=== PATIENT | male | born 1955 | race Caucasian/White ===

== ENCOUNTER 2019-01-28 06:08 | Emergency (ER) | payer OTHER ==
[~2019-01-28] VITALS: Ht 180.3 cm; Wt 90.2 kg
[2019-01-28] MEDS ORDERED: KETOROLAC 30MG/ML VIAL IV STA (07:14)
[2019-01-28] MEDS ORDERED: SODIUM CHLORIDE 0.9% 1,000 ML IV ONE (07:14)
[2019-01-28] MEDS ORDERED: METRONIDAZOLE 500 MG PREMIX 100 ML IV ONE (07:15)
[2019-01-28 07:37] LABS: HEMATOCRIT. 40.1 % (42.0-52.0); HEMOGLOBIN. 12.8 g/dL (14.0-18.0); MEAN CORPUSCULAR HEMOGLOBIN 21.5 pg (28.0-32.0); MEAN CORPUSCULAR VOLUME 67.5 fL (80.0-94.0); MEAN PLATELET VOLUME 10.4 fl (7.4-10.4); PLATELET 194 x1000/uL (130-400); RED BLOOD CELL COUNT 5.94 mill/uL (4.7-6.1); RED CELL DISTRIBUTION WIDTH 15.4 % (11.6-14.6)
[2019-01-28 07:43] LABS: CHLORIDE 106 mEq/L (98-107)
[2019-01-28 07:46] LABS: INR 1.1; PROTHROMBIN TIME 10.8 sec (9.6-11.0)
[2019-01-28 07:47] LABS: ETHANOL BLOOD < 10 mg/dL
[2019-01-28 08:34] LABS: BASOPHILS % 0.3 % (0.0-2.0); LYMPHOCYTES % 22.8 % (20.0-50.0); MONOCYTES % 12.5 % (2.0-8.0); NEUTROPHILS % 64.4 % (40.0-76.0)
[2019-01-28 08:35] LABS: PLATELET ESTIMATE NORMAL
[2019-01-28 08:50] LABS: CLARITY URINE CLEAR (CLEAR); COLOR URINE DARK YELLOW (YELLOW); KETONES URINE 2+ (NEGATIVE); LEUKOCYTE ESTERASE URINE NEGATIVE (NEGATIVE); NITRITE URINE NEGATIVE (NEGATIVE); OCCULT BLOOD URINE NEGATIVE (NEGATIVE); PROTEIN URINE 1+ (NEGATIVE); SPECIFIC GRAVITY URINE 1.035 (1.005-1.030)
[2019-01-28 09:10] LABS: *BARBITURATES SCREEN URINE NEGATIVE (NEGATIVE); *BENZODIAZEPINES SCREEN URINE NEGATIVE (NEGATIVE)
[2019-01-28 09:11] LABS: *COCAINE SCREEN URINE NEGATIVE (NEGATIVE); CANNABINOID URINE SCREEN NEGATIVE (NEGATIVE); METHADONE URINE SCREEN NEGATIVE (NEGATIVE); OPIATES URINE SCREEN PRESUMTIVE POSITIVE (NEGATIVE); PHENCYCLIDINE URINE SCREEN NEGATIVE (NEGATIVE)
[2019-01-28 09:12] LABS: *AMPHETAMINES SCREEN URINE NEGATIVE (NEGATIVE)
[2019-01-28 10:20] VITALS: BP 161/68
== END 2019-01-28 10:39 | disposition home or self-care (01) ==
LOC: ER 06:08
DX: R10.13 Epigastric pain (principal); R19.7 Diarrhea, unspecified
CPT/HCPCS: 36415; 71045; 74176; 80053; 80305; 80320; 81003; 83690; 83880; 84484; 85025; 85610; 85730; 87086; 93005; 96365; 96375; 99284; J1885; J3490; J7030; Z7610; G0480

== ENCOUNTER 2019-07-23 17:56 | Emergency (ER) | payer OTHER ==
[~2019-07-23] VITALS: Ht 180.3 cm; Wt 5.0 kg
[2019-07-23] MEDS ORDERED: ACETAMINOPHEN WITH CODEINE 300/30MG TABLET PO ONE (19:00)
[2019-07-23] MEDS ORDERED: BACITRACIN 15GM TUBE TOP ONE (19:45)
[2019-07-23 20:45] VITALS: BP 125/76
== END 2019-07-23 21:24 | disposition home or self-care (01) ==
LOC: ER 17:56
DX: M79.18 Myalgia, other site (principal); S80.212A Abrasion, left knee, initial encounter; S80.211A Abrasion, right knee, initial encounter; S60.812A Abrasion of left wrist, initial encounter; S60.811A Abrasion of right wrist, initial encounter; W01.0XXA Fall on same level from slipping, tripping and stumbling without subsequent striking against object, initial encounter; Y93.55 Activity, bike riding; Y92.89 Other specified places as the place of occurrence of the external cause
CPT/HCPCS: 70486; 73110; 73560; 99284

== ENCOUNTER 2022-01-09 20:11 | Emergency (ER) | payer MEDICARE, OTHER ==
[~2022-01-09] VITALS: Ht 180.3 cm; Wt 89.0 kg
[2022-01-09] MEDS ORDERED: CEPH500C2 MT (21:56)
[2022-01-09] MEDS ORDERED: IBUP-2029 MT (21:56)
[2022-01-09] MEDS ORDERED: SULF1TAB48 MT (21:56)
[2022-01-09] MEDS ORDERED: KETOROLAC 60MG/2ML VIAL IM ONE (22:15)
[2022-01-09 22:39] VITALS: BP 135/82
== END 2022-01-09 23:25 | disposition home or self-care (01) ==
LOC: ER 20:11
DX: S62.92XA Unspecified fracture of left hand, initial encounter for closed fracture (principal); W18.30XA Fall on same level, unspecified, initial encounter; Y93.89 Activity, other specified; Y92.89 Other specified places as the place of occurrence of the external cause; Y99.8 Other external cause status
CPT/HCPCS: 73130; 96372; 99283; J1885

== ENCOUNTER 2022-03-04 23:01 | Emergency (ER) | payer MEDICARE, OTHER ==
[~2022-03-04] VITALS: Ht 180.3 cm; Wt 91.0 kg
[~2022-03-04 23:01] MED LIST: CEPH500C2 MT; IBUP-2029 MT; SULF1TAB48 MT
[2022-03-04 23:14] VITALS: BP 159/89
[2022-03-05] MEDS ORDERED: HYDROCODONE/ACETAMINOPHEN 5/325MG TABLET PO ONE (02:30)
[2022-03-05] MEDS ORDERED: IBUP-2029 MT (04:23)
== END 2022-03-05 04:30 | disposition home or self-care (01) ==
LOC: ER 23:01
DX: S09.8XXA Other specified injuries of head, initial encounter (principal); S13.9XXA Sprain of joints and ligaments of unspecified parts of neck, initial encounter; S63.502A Unspecified sprain of left wrist, initial encounter; V13.4XXA Pedal cycle driver injured in collision with car, pick-up truck or van in traffic accident, initial encounter; Y93.89 Activity, other specified; Y92.414 Local residential or business street as the place of occurrence of the external cause
CPT/HCPCS: 73110; 93005; 99285

== ENCOUNTER 2022-08-02 08:35 | Emergency (ER) | payer MEDICARE, OTHER ==
[~2022-08-02] VITALS: Ht 180.3 cm; Wt 91.5 kg
[2022-08-02] MEDS ORDERED: IBUP-2030 PO (11:43)
[2022-08-02] MEDS ORDERED: T3 PO (11:43)
[2022-08-02] MEDS ORDERED: IBUPROFEN 800MG TABLET PO ONE (11:45)
[2022-08-02] MEDS ORDERED: OXYC-100 PO (12:12)
[2022-08-02 12:21] VITALS: BP 132/75
== END 2022-08-02 12:22 | disposition home or self-care (01) ==
LOC: ER 08:35
DX: S52.611A Displaced fracture of right ulna styloid process, initial encounter for closed fracture (principal); S52.591A Other fractures of lower end of right radius, initial encounter for closed fracture; W10.8XXA Fall (on) (from) other stairs and steps, initial encounter; Y93.89 Activity, other specified; Y92.018 Other place in single-family (private) house as the place of occurrence of the external cause
CPT/HCPCS: 29105; 70486; 71250; 73060; 73090; 99284; A4565

== ENCOUNTER 2022-08-10 12:05 | Emergency (ER) | payer MEDICARE, OTHER ==
[~2022-08-10] VITALS: Ht 175.3 cm; Wt 77.0 kg
[~2022-08-10 12:05] MED LIST changes: +IBUP-2030 PO; +OXYC-100 PO
[2022-08-10 12:09] VITALS: BP 130/94
[2022-08-10] MEDS ORDERED: HYDROCODONE/ACETAMINOPHEN 5/325MG TABLET PO ONE (14:15)
[2022-08-10] MEDS ORDERED: IBUP-2029 MT (14:54)
== END 2022-08-10 16:22 | disposition home or self-care (01) ==
LOC: ER 12:05
DX: S52.501A Unspecified fracture of the lower end of right radius, initial encounter for closed fracture (principal); Z13.9 Encounter for screening, unspecified; Z98.890 Other specified postprocedural states; W10.9XXA Fall (on) (from) unspecified stairs and steps, initial encounter; Y93.89 Activity, other specified; Y92.89 Other specified places as the place of occurrence of the external cause; Y99.8 Other external cause status
CPT/HCPCS: 29125; 99283

== ENCOUNTER 2022-08-12 22:00 | Emergency (ER) | payer MEDICARE, OTHER ==
[~2022-08-12] VITALS: Ht 180.3 cm; Wt 82.0 kg
[2022-08-12 22:39] VITALS: BP 165/93
[2022-08-13] MEDS ORDERED: HYDROCODONE/ACETAMINOPHEN 5/325MG TABLET PO ONE (00:30)
[2022-08-13] MEDS ORDERED: HYDR-4001 MT (02:06)
== END 2022-08-13 02:26 | disposition home or self-care (01) ==
LOC: ER 22:00
DX: S52.91XD Unspecified fracture of right forearm, subsequent encounter for closed fracture with routine healing (principal); W10.8XXD Fall (on) (from) other stairs and steps, subsequent encounter
CPT/HCPCS: 99283

== ENCOUNTER 2022-08-19 12:41 | Emergency (ER) | payer MEDICARE, OTHER ==
[~2022-08-19] VITALS: Ht 180.3 cm; Wt 92.0 kg
[~2022-08-19 12:41] MED LIST changes: +HYDR-4001 MT
[2022-08-19] MEDS ORDERED: ACETAMINOPHEN 325MG TABLET PO ONE (14:00)
[2022-08-19] MEDS ORDERED: ACET-2708 MT (14:43)
[2022-08-19] MEDS ORDERED: KETOROLAC 60MG/2ML VIAL IM ONE (14:45)
[2022-08-19 15:12] VITALS: BP 131/88
== END 2022-08-19 15:24 | disposition home or self-care (01) ==
LOC: ER 12:41
DX: S52.291A Other fracture of shaft of right ulna, initial encounter for closed fracture (principal); S52.91XA Unspecified fracture of right forearm, initial encounter for closed fracture; X58.XXXA Exposure to other specified factors, initial encounter; Y93.89 Activity, other specified; Y92.89 Other specified places as the place of occurrence of the external cause; Y99.8 Other external cause status; Z79.899 Other long term (current) drug therapy
CPT/HCPCS: 96372; 99283; J1885

== ENCOUNTER 2022-08-27 09:43 | Emergency (ER) | payer MEDICARE, OTHER ==
[~2022-08-27] VITALS: Ht 175.3 cm; Wt 91.0 kg
[~2022-08-27 09:43] MED LIST changes: +ACET-2708 MT
[2022-08-27 10:07] VITALS: BP 182/105
[2022-08-27] MEDS ORDERED: CIPR5DRO LEFTEYE ×2 (14:33)
[2022-08-27] MEDS ORDERED: NAPR375T5 MT (14:36)
[2022-08-27] MEDS ORDERED: T3 PO (15:19)
[2022-08-27] MEDS ORDERED: NAPROXEN 375MG TABLET PO SCH (21:00)
== END 2022-08-27 16:05 | disposition home or self-care (01) ==
LOC: ER 09:43
DX: M79.641 Pain in right hand (principal); Z87.81 Personal history of (healed) traumatic fracture; Z98.890 Other specified postprocedural states
CPT/HCPCS: 99283